=== PATIENT | female | born 1945 | race Caucasian/White ===

== ENCOUNTER 2022-05-10 13:18 | Inpatient (IN) | payer MEDICARE, BC ==
[2022-05-10 15:40] LABS: #Basophils 0.1 10x3/uL (0.0-0.2); #Eosinphils 0.2 10x3/uL (0.0-0.5); #Monocytes 1.3 10x3/uL (0.0-1.1); #Neutrophils 9.2 10x3/uL (1.5-8.4); %Basophils 0.4 % (0.0-2.0); %Eosinophils 1.4 % (0.0-6.0); %Lymphocytes 14.3 % (18.0-47.0); %Monocytes 10.5 % (0.0-10.0); Hemoglobin 12.3 g/dL (12.0-15.5); Mean Corpuscular HGB CONC 32.6 g/dL (32.0-36.0); Mean Corpuscular Hemoglobin 30.3 pg (27.0-33.0); Mean Corpuscular Volume 92.9 fl (81.6-98.3); Mean Platelet Volume 9.6 fl (7.4-10.4); Platelet Count 200 10x3/uL (150-450); RBC Distribution Width 14.4 % (11.5-14.5); Red Blood Cell (RBC) Count 4.06 10x6/uL (3.90-5.03); White Blood Cell (WBC) Count 12.6 10x3/uL (3.5-10.5)
[2022-05-10 15:56] LABS: ALT (SGPT) 21 U/L (8-55); AST (SGOT) 30 U/L (5-34); Albumin 3.8 g/dL (3.4-4.8); Alkaline Phosphatase 116 U/L (40-110); Anion Gap 18 mmol/L (10-20); BUN (Urea Nitrogen) 26 mg/dL (9.8-20.1); Bilirubin, Total 0.9 mg/dL (0.2-1.2); Calc. Creatinine Clearance 0 mL/min (70-130); Calcium 9.7 mg/dL (7.8-10.44); Carbon Dioxide 24 mmol/L (23-31); Chloride 102 mmol/L (98-107); Estimated GFR 66; Globulin 3.4 g/dL (2.4-3.5); Glucose 93 mg/dL (83-110); Potassium 4.6 mmol/L (3.5-5.1); Protein, Total 7.2 g/dL (5.8-8.1); Sodium 139 mmol/L (136-145)
[2022-05-10] MEDS ORDERED: Cefepime 2 GM VIAL ONE (16:02)
[2022-05-10] MEDS ORDERED: Acetaminophen 325 MG TAB PO PRN (16:50)
[2022-05-10 17:45] VITALS: BMI 31.2
[2022-05-10] MEDS ORDERED: hydrALAZINE 20 MG/ML VIAL SLOW IVP PRN (18:47)
[2022-05-10] MEDS ORDERED: Vancomycin HCl 750 MG in Sodium Chloride 0.9% 250 ML 250 ML IVPB SCH (20:00)
[2022-05-10] MEDS: Famotidine 20 MG TAB PO SCH (20:11)
[2022-05-10] MEDS: Gabapentin 300 MG CAP PO SCH (21:44)
[2022-05-11] MEDS: Cefepime 2 GM in Sodium Chloride 0.9% 100 ML IVPB SCH ×2 (03:30→16:45)
[2022-05-11 03:58] LABS: #Eosinphils 0.2 10x3/uL (0.0-0.5); #Monocytes 0.8 10x3/uL (0.0-1.1); #Neutrophils 7.7 10x3/uL (1.5-8.4); %Basophils 0.3 % (0.0-2.0); %Eosinophils 1.9 % (0.0-6.0); %Lymphocytes 10.7 % (18.0-47.0); %Monocytes 8.1 % (0.0-10.0); %Neutrophils 78.7 % (40.0-75.0); Hemoglobin 10.5 g/dL (12.0-15.5); Mean Corpuscular Volume 90.9 fl (81.6-98.3); Mean Platelet Volume 9.6 fl (7.4-10.4); Platelet Count 195 10x3/uL (150-450); RBC Distribution Width 14.6 % (11.5-14.5); White Blood Cell (WBC) Count 9.8 10x3/uL (3.5-10.5)
[2022-05-11 04:10] LABS: Anion Gap 16 mmol/L (10-20); BUN (Urea Nitrogen) 23 mg/dL (9.8-20.1); Calc. Creatinine Clearance 70 mL/min (70-130); Calcium 9.5 mg/dL (7.8-10.44); Carbon Dioxide 24 mmol/L (23-31); Chloride 102 mmol/L (98-107); Estimated GFR 63; Glucose 113 mg/dL (83-110); Potassium 4.6 mmol/L (3.5-5.1); Sodium 137 mmol/L (136-145)
[2022-05-11] MEDS: Aspirin 325 mg Enteric Coated Tablet PO SCH (08:12)
[2022-05-11] MEDS: Famotidine 20 MG TAB PO SCH ×2 (08:12→20:33)
[2022-05-11] MEDS: Enoxaparin Sodium 40 MG/0.4 ML SYRINGE SC SCH (08:12)
[2022-05-11] MEDS: Gabapentin 300 MG CAP PO SCH ×2 (08:13→20:33)
[2022-05-11] MEDS: Losartan Potassium 50 MG TAB PO SCH (08:13)
[2022-05-11] MEDS: Hydrochlorothiazide 25 MG TAB PO SCH (08:13)
[2022-05-11] MEDS ORDERED: Cefepime 2 GM VIAL ONE (16:41)
[2022-05-11] MEDS ORDERED: Vancomycin 1.5 GRAM/300 ML BAG ONE (16:42)
[2022-05-11] MEDS: Vancomycin 1.5 GRAM/300 ML BAG 1.5 GM in Premix Bag 1 BAG IVPB SCH (16:46)
[2022-05-12 04:25] LABS: #Eosinphils 0.4 10x3/uL (0.0-0.5); #Monocytes 0.7 10x3/uL (0.0-1.1); #Neutrophils 6.3 10x3/uL (1.5-8.4); %Basophils 0.5 % (0.0-2.0); %Eosinophils 4.5 % (0.0-6.0); %Lymphocytes 8.8 % (18.0-47.0); %Monocytes 8.1 % (0.0-10.0); %Neutrophils 77.7 % (40.0-75.0); Hemoglobin 10.6 g/dL (12.0-15.5); Mean Corpuscular HGB CONC 33.3 g/dL (32.0-36.0); Mean Corpuscular Hemoglobin 29.9 pg (27.0-33.0); Mean Corpuscular Volume 89.8 fl (81.6-98.3); Mean Platelet Volume 9.8 fl (7.4-10.4); Platelet Count 200 10x3/uL (150-450); RBC Distribution Width 14.4 % (11.5-14.5); Red Blood Cell (RBC) Count 3.54 10x6/uL (3.90-5.03); White Blood Cell (WBC) Count 8.1 10x3/uL (3.5-10.5)
[2022-05-12] MEDS: Cefepime 2 GM in Sodium Chloride 0.9% 100 ML IVPB SCH ×2 (04:36→15:45)
[2022-05-12 04:45] LABS: Anion Gap 14 mmol/L (10-20); BUN (Urea Nitrogen) 24 mg/dL (9.8-20.1); CRP (Inflammatory) 15.58 mg/dL (= or < 0.5); Calc. Creatinine Clearance 61 mL/min (70-130); Calcium 9.1 mg/dL (7.8-10.44); Carbon Dioxide 25 mmol/L (23-31); Chloride 101 mmol/L (98-107); Estimated GFR 54; Glucose 119 mg/dL (83-110); Potassium 4.1 mmol/L (3.5-5.1); Sodium 136 mmol/L (136-145)
[2022-05-12] MEDS: Enoxaparin Sodium 40 MG/0.4 ML SYRINGE SC SCH (09:30)
[2022-05-12] MEDS: Aspirin 325 mg Enteric Coated Tablet PO SCH (09:30)
[2022-05-12] MEDS: Gabapentin 300 MG CAP PO SCH ×2 (09:30→21:22)
[2022-05-12] MEDS: Losartan Potassium 50 MG TAB PO SCH (09:31)
[2022-05-12] MEDS: Hydrochlorothiazide 25 MG TAB PO SCH (09:33)
[2022-05-12] MEDS: Vancomycin 1.5 GRAM/300 ML BAG 1.5 GM in Premix Bag 1 BAG IVPB SCH (18:54)
[2022-05-12 19:30] LABS: Vancomycin, Trough 9.5 ug/mL
[2022-05-12] MEDS: Famotidine 20 MG TAB PO SCH (21:22)
[2022-05-13] MEDS: Cefepime 2 GM in Sodium Chloride 0.9% 100 ML IVPB SCH ×2 (03:39→15:53)
[2022-05-13] MEDS: Gabapentin 300 MG CAP PO SCH ×2 (09:25→20:44)
[2022-05-13] MEDS: Aspirin 325 mg Enteric Coated Tablet PO SCH (09:25)
[2022-05-13] MEDS: Hydrochlorothiazide 25 MG TAB PO SCH (09:26)
[2022-05-13] MEDS ORDERED: Sodium Bicarbonate 2.5 MEQ/5 ML VIAL ONE (09:27)
[2022-05-13] MEDS: Enoxaparin Sodium 40 MG/0.4 ML SYRINGE SC SCH (09:27)
[2022-05-13] MEDS: Losartan Potassium 50 MG TAB PO SCH (09:27)
[2022-05-13] MEDS ORDERED: Lidocaine 1% PF 5 ML VIAL ONE (09:27)
[2022-05-13] MEDS ORDERED: Vancomycin 1.5 GRAM/300 ML BAG 1.5 GM in Premix Bag 1 BAG IVPB SCH (12:00)
[2022-05-13] MEDS: Famotidine 20 MG TAB PO SCH (20:45)
[2022-05-14] MEDS: Cefepime 2 GM in Sodium Chloride 0.9% 100 ML IVPB SCH (04:28)
[2022-05-14] MEDS ORDERED: DAPTOMYCIN IVPB SCH (09:00)
[2022-05-14] MEDS ORDERED: SODIUM CHLORIDE IVPB SCH (09:00)
[2022-05-14] MEDS ORDERED: ADMIXTURE FEE IVPB SCH (09:00)
[2022-05-14] MEDS: Gabapentin 300 MG CAP PO SCH (09:58)
[2022-05-14] MEDS: Losartan Potassium 50 MG TAB PO SCH (09:58)
[2022-05-14] MEDS: Aspirin 325 mg Enteric Coated Tablet PO SCH (09:59)
[2022-05-14] MEDS: Hydrochlorothiazide 25 MG TAB PO SCH (09:59)
[2022-05-14] MEDS: Enoxaparin Sodium 40 MG/0.4 ML SYRINGE SC SCH (09:59)
[2022-05-14 11:23] VITALS: BP 147/66; TEMP 97.6
== END 2022-05-14 14:52 | disposition home or self-care (01) | DRG 540 ==
LOC: CSHERS 13:18 → INTOOBSV 16:50 → CSHTELE 16:50 → OBSVTOIN 16:51
PROVIDERS: ADMIT Student in an Organized Health Care Education/Training Program; ATTEND Student in an Organized Health Care Education/Training Program
PROC: 02HV33Z Insertion of Infusion Device into Superior Vena Cava, Percutaneous Approach (ICD-10-PCS; principal; 2022-05-13)
PROC: B5181ZA Fluoroscopy of Superior Vena Cava using Low Osmolar Contrast, Guidance (ICD-10-PCS; 2022-05-13)
PROC: B548ZZA Ultrasonography of Superior Vena Cava, Guidance (ICD-10-PCS; 2022-05-13)
DX: M86.8X7 Other osteomyelitis, ankle and foot (principal); L03.115 Cellulitis of right lower limb; L03.116 Cellulitis of left lower limb; I10 Essential (primary) hypertension; G62.9 Polyneuropathy, unspecified; Z20.822 Contact with and (suspected) exposure to COVID-19; Z95.2 Presence of prosthetic heart valve; Z88.1 Allergy status to other antibiotic agents; Z88.5 Allergy status to narcotic agent; Z88.8 Allergy status to other drugs, medicaments and biological substances; Z79.899 Other long term (current) drug therapy; Z98.890 Other specified postprocedural states
CPT/HCPCS: 36415; 36569; 80048; 80053; 80202; 82550; 83605; 84145; 85025; 85652; 86140; 87040; 87070; 87077; 87186; 87205; 97139; C1751; J0692; J0878; J1650; J3370; J3490; J7050; U0003; U0005

== ENCOUNTER 2022-09-20 15:10 | Outpatient (CLI) | payer MEDICARE, BC | END 2022-09-20 15:11 | disposition home or self-care (01) | LOC: CSHMRI 15:10 | PROVIDERS: ATTEND Family Medicine | DX: M54.16 Radiculopathy, lumbar region (principal); M47.816 Spondylosis without myelopathy or radiculopathy, lumbar region; M51.36 Other intervertebral disc degeneration, lumbar region; M48.07 Spinal stenosis, lumbosacral region; Z98.890 Other specified postprocedural states | CPT/HCPCS: 72148 ==

== ENCOUNTER 2023-03-09 19:30 | Emergency (ER) | payer OTHER, MEDICARE, BC ==
[2023-03-09 20:59] LABS: #Monocytes 0.9 10x3/uL (0.0-1.1); #Neutrophils 9.6 10x3/uL (1.5-8.4); %Basophils 0.2 % (0.0-2.0); %Lymphocytes 20.4 % (18.0-47.0); %Neutrophils 71.8 % (40.0-75.0); Mean Corpuscular HGB CONC 33.1 g/dL (32.0-36.0); Mean Corpuscular Hemoglobin 30.7 pg (27.0-33.0); Mean Corpuscular Volume 92.7 fl (81.6-98.3); Mean Platelet Volume 9.7 fl (7.4-10.4); Platelet Count 246 10x3/uL (150-450); Red Blood Cell (RBC) Count 3.58 10x6/uL (3.90-5.03); White Blood Cell (WBC) Count 13.3 10x3/uL (3.5-10.5)
[2023-03-09 21:00] LABS: Anion Gap 14 mmol/L (10-20); BUN (Urea Nitrogen) 34 mg/dL (9.8-20.1); Bilirubin, Total 0.7 mg/dL (0.2-1.2); Calc. Creatinine Clearance 0 mL/min (70-130); Calcium 8.6 mg/dL (7.8-10.44); Carbon Dioxide 26 mmol/L (23-31); Chloride 104 mmol/L (98-107); Estimated GFR 47; Glucose 126 mg/dL (83-110); Potassium 3.9 mmol/L (3.5-5.1); Protein, Total 6.6 g/dL (5.8-8.1); Sodium 140 mmol/L (136-145)
[2023-03-09 21:01] LABS: ALT (SGPT) 22 U/L (8-55); AST (SGOT) 26 U/L (5-34); Albumin 3.9 g/dL (3.4-4.8); Alkaline Phosphatase 97 U/L (40-110); Globulin 2.7 g/dL (2.4-3.5)
[2023-03-09 21:06] LABS: INR-International Normal Ratio 3.7; PTT 41.6 sec (22.0-33.0); Prothrombin Time 38.7 sec (9.5-12.1)
== END 2023-03-09 22:55 | disposition home or self-care (01) ==
LOC: CSHERS 19:30
DX: S06.5X0A Traumatic subdural hemorrhage without loss of consciousness, initial encounter (principal); S80.11XA Contusion of right lower leg, initial encounter; D72.829 Elevated white blood cell count, unspecified; I10 Essential (primary) hypertension; W01.0XXA Fall on same level from slipping, tripping and stumbling without subsequent striking against object, initial encounter; Z79.01 Long term (current) use of anticoagulants; Z79.899 Other long term (current) drug therapy
CPT/HCPCS: 36415; 70450; 70486; 80053; 85025; 85610; 85730

== ENCOUNTER 2024-03-13 13:40 | Outpatient (CLI) | payer MEDICARE, BC | END 2024-03-13 13:41 | disposition home or self-care (01) | LOC: CSHMRI 13:40 | PROVIDERS: ATTEND Family Medicine | DX: M48.062 Spinal stenosis, lumbar region with neurogenic claudication (principal); M25.552 Pain in left hip; M25.551 Pain in right hip; N83.9 Noninflammatory disorder of ovary, fallopian tube and broad ligament, unspecified; M47.816 Spondylosis without myelopathy or radiculopathy, lumbar region; S76.012A Strain of muscle, fascia and tendon of left hip, initial encounter; M94.8X8 Other specified disorders of cartilage, other site; S76.011A Strain of muscle, fascia and tendon of right hip, initial encounter | CPT/HCPCS: 72148 ==

== ENCOUNTER 2024-03-26 13:52 | Outpatient (CLI) | payer MEDICARE, BC | END 2024-03-26 13:53 | disposition home or self-care (01) | LOC: CSHULT 13:52 | PROVIDERS: ATTEND Family Medicine | DX: N83.292 Other ovarian cyst, left side (principal) | CPT/HCPCS: 76856 ==

== ENCOUNTER 2024-04-26 14:45 | Outpatient (CLI) | payer MEDICARE, BC | END 2024-04-26 14:46 | disposition home or self-care (01) | LOC: CSHMAMMO 14:45 | PROVIDERS: ATTEND Family Medicine | DX: Z78.0 Asymptomatic menopausal state (principal); M85.851 Other specified disorders of bone density and structure, right thigh; M85.852 Other specified disorders of bone density and structure, left thigh | CPT/HCPCS: 77080 ==

== ENCOUNTER 2025-04-11 11:13 | Outpatient (CLI) | payer MEDICARE, BC | END 2025-04-11 11:14 | disposition home or self-care (01) | LOC: CSHMRI 11:13 | PROVIDERS: ATTEND Family Medicine | DX: M54.16 Radiculopathy, lumbar region (principal); M48.061 Spinal stenosis, lumbar region without neurogenic claudication; M48.07 Spinal stenosis, lumbosacral region | CPT/HCPCS: 72148 ==

== ENCOUNTER 2025-08-15 14:11 | Outpatient (CLI) | payer MEDICARE, BC | END 2025-08-15 14:12 | disposition home or self-care (01) | LOC: CSHCT 14:11 | PROVIDERS: ATTEND Family Medicine | DX: S09.90XA Unspecified injury of head, initial encounter (principal) | CPT/HCPCS: 70450 ==